=== PATIENT | female | born 1960 | race Caucasian/White ===

== ENCOUNTER 2021-11-05 15:14 | Emergency (ER) | payer SELFPAY ==
[~2021-11-05] VITALS: Ht 170.2 cm; Wt 88.1 kg
[2021-11-05 15:43] VITALS: BP 155/100
[2021-11-05] MEDS ORDERED: PROG200C3 PO (16:17)
[2021-11-05] MEDS ORDERED: VENL-152 PO (16:17)
[2021-11-05] MEDS ORDERED: AMPH20CE PO (16:17)
[2021-11-05] MEDS ORDERED: ESTR2TAB PO (16:17)
[2021-11-05 16:50] VITALS: BP 155/100
--- NOTE | 2021-11-05 16:50 | NUR ---
Patient discharged with v/s stable. Written and verbal after care instructions given and explained. Patient alert, oriented and verbalized understanding of instructions. Ambulatory with steady gait. All questions addressed prior to discharge. ID band removed. Patient advised to follow up with PMD. Rx of ADDERALL, ESTRADIOL, PROGESTERONE, VENLAFAXINE given. Patient educated on indication of medication including possible reaction and side effects. Opportunity to ask questions provided and answered.
== END 2021-11-05 16:50 | disposition home or self-care (01) ==
LOC: MED 15:14
DX: F32.9 Major depressive disorder, single episode, unspecified (principal); F41.9 Anxiety disorder, unspecified; F90.9 Attention-deficit hyperactivity disorder, unspecified type; Z76.0 Encounter for issue of repeat prescription; Z79.899 Other long term (current) drug therapy
CPT/HCPCS: 99281